=== PATIENT | male | born 2000 | race Caucasian/White ===

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

== ENCOUNTER → 2024-10-15 | Outpatient (CLI) | payer OTHER, SELFPAY ==
[2024-10-15 12:28] LABS: Hematocrit 50.5 % (40-54); Hemoglobin 17.2 g/dL (13.0-16.5); Immature Granulocytes Count 0.050 X10^3/uL (0.0-0.0); Mean Corp Hgb Conc 34.1 g/dL (32-36); Mean Corpuscular Volume 86.3 fL (80-94); Mean Platelet Vol. 9.9 fl (6.2-12.0); NRBC Flagged by Analyzer 0 % (0-5); Platelet Count 318 K/mm3 (150-450); RBC Distribution Width CV 12.2 % (11.6-14.6); RBC Distribution Width SD 38.4 fl (35.1-43.9); Red Blood Count 5.85 M/mm3 (4.6-6.2); White Blood Count 7.3 K/mm3 (4.4-11.0)
[2024-10-15 13:18] LABS: AST(SGOT) 31 U/L (<=37); Alanine Aminotransfer ALT/SGPT 53 U/L (<=46); Albumin, Serum 4.6 g/dL (3.5-5.0); Alkaline Phosphatase 78 U/L (40-129); Anion Gap 13 (5-15); BUN 21 mg/dL (4-19); BUN/Creat Ratio 20.5 RATIO (10-20); Calcium,Total 9.7 mg/dL (7.6-11.0); Carbon Dioxide 22.6 mmol/L (21.0-32.0); Chloride 104 mmol/L (98-108); Cholesterol 178 mg/dL (<=190); Globulin 2.8 g/dL (2.2-4.2); Glucose 87 mg/dL (70-99); Low Density Lipoprotein Calc. 118 mg/dL; Potassium 4.3 mmol/L (3.3-5.1); Triglycerides 61 mg/dL; Very Low Density Lipoprotein 12 mg/dL (5-40); cholesterol:hdl ratio screen 3.74
[2024-10-15 13:21] LABS: Vitamin D,25 Hydroxy 70.0 ng/mL (30-100)
--- OUTSIDE RECORDS SUMMARY | 2024-10-15 21:58 | XMS RPT_ITS | CCD ---
Author Organization [facility] Care Team Providers Care Frame Feeder Name Role Phone Janae Siddiqui Unavailable Unavailable Janae Siddiqui Unavailable Unavailable [facility] Unavailable Unavailable Nery Miller Admitting Unavailable Nery Miller Attending Unavailable [facility] Unavailable Supa Mayo Unavailable [phone] Kimberlee Alonzo Unavailable Unavailabl e NO, PHYSICIAN Primary Care Unavailable TAVON JIMENEZ, ODALYS Attending Unavailable TAVON JIMENEZ, ODALYS Attending Unavailable NO, PHYSICIAN Primary Care Unavailable TAVON JIMENEZ, ODALYS Attending Unavailable NO, PHYSICIAN Primary Care Unavailable Problems Problem Classification Problem Date Documented Da te Episodic/Chronic Other aftercare (1 source) Other intermediate school teacher (current) drug therapy; Translations: [Z79.899 - Other mcfp (current) drug therapy] Onset: 04-02-2018 Episodic Other gastrointestinal disorders (2 sources) Diarrhea; Translations: [Diarrhea] 05-16-2021 Episodic Other skin disorders (1 source) Acne vulgaris; Translations: [L70.0 - Acne vulgaris] Onset: 04-02-2018 Episodic Other skin disorders (2 sources) Ingrowing nail; Translations: [Ingrowing nail] Onset: 10-25-2023 Episodic Unclassified (2 sources) DIARREAH X5 DAYS. 24 HOURS WITH BLOOD 05-16-2021 Comment on above: DIARREAH X5 DAYS. 24 HOURS WITH BLOOD Unclassified (2 sources) Post-op Onset: 11-01-2023 Results Test Name Value Interpretation Reference Range Facility CLOST DIFF. TOXIN, PCRon CLOST.DIFF NAP 1 STRAIN (Presumptive) Canceled Normal Not Detected [facility] Comment on above: Order Comment: TEST CLOST DIFF. TOXIN, PCR WAS CANCELLED, 05/16/2021 22:28 PATIENT DISCHARGED. Performed By: #### C DTPC #### [address] [address] CLOST.DIFF.TOXIN,PC R Canceled [facility] Comment on above: Order Comment: TEST CLOST DIFF. TOXIN, PCR WAS CANCELLED, 05/16/2021 22:28 PATIENT DISCHARGED. Result Comment: This assay detects the presence of the tcdB (toxin B) gene via DNA amplification, and results should be interpreted in the context of the patients history and clinical findings. This test cannot be performed on formed stools or used as a test of cure, and should not be performed more than once per 7 days. Performed By: #### C DTPC #### [address] [address] STOOL PATHOGEN PCR PANELon 0 05-17-2021 CAMPYLOBACTER GP. Canceled [facility] Comment on above: Order Comment: TEST STOOL PATHOGEN PCR PANEL WAS CANCELLED, 05/16/2021 22:28 PATIENT DISCHARGED. Performed By: #### S TLPP #### [facility] [address] [place] [address] NOROVIRUS GI/GII Canceled [facility] Comment on above: Order Comment: TEST STOOL PATHOGEN PCR PANEL WAS CANCELLED, 05/16/2021 22:28 PATIENT DISCHARGED. Performed By: #### S TLPP #### [facility] [address] [place] [address] ROTAVIRUS A Canceled [facility] Comment on above: Order Comment: TEST STOOL PATHOGEN PCR PANEL WAS CANCELLED, 05/16/2021 22:28 PATIENT DISCHARGED. Result Comment: The enteric PCR panel is a panel of sensitive and specific amplified nucleic acid tests indicated as an aid in the diagnosis of specific bacterial and viral agents of gastrointestinal illness, in conjunction with other clinical, laboratory, and epidemiological information. This test is not approved for monitoring these infections. Monitoring is available for Salmonella and Shigella infections-request test Stool PCR Follow-Up (STLPF). Monitoring tests are not available at this time for other enteric agents in this panel. Performed By: #### S TLPP #### [facility] [address] [place] [address] SALMONELLA SP. Canceled Normal [facility] Comment on above: Order Comment: TEST STOOL PATHOGEN PCR PANEL WAS CANCELLED, 05/16/2021 22:28 PATIENT DISCHARGED. Performed By: #### S TLPP #### [facility] [address] [place] [address] SHIGA TOXIN 1 Canceled [facility] Comment on above: Order Comment: TEST STOOL PATHOGEN PCR PANEL WAS CANCELLED, 05/16/2021 22:28 PATIENT DISCHARGED. Performed By: #### S TLPP #### [facility] [address] [place] [id number] SHIGA TOXIN 2 Canceled Normal [facility] Comment on above: Order Comment: TEST STOOL PATHOGEN PCR PANEL WAS CANCELLED, 05/16/2021 22:28 PATIENT DISCHARGED. Performed By: #### S TLPP #### [facility] [address] [place] [address] SHIGELLA SP. Canceled [facility] Comment on above: Order Comment: TEST STOOL PATHOGEN PCR PANEL WAS CANCELLED, 05/16/2021 22:28 PATIENT DISCHARGED. Performed By: #### S TLPP #### [facility] [address] [place] [id number] [employer] Canceled [facility] Comment on above: Order Comment: TEST STOOL PATHOGEN PCR PANEL WAS CANCELLED, 05/16/2021 22:28 PATIENT DISCHARGED. Performed By: #### S TLPP #### [facility] [address] [place] [id number] YERSINIA ENTEROCOLITICA Canceled [facility] Comment on above: Order Comment: TEST STOOL PATHOGEN PCR PANEL WAS CANCELLED, 05/16/2021 22:28 PATIENT DISCHARGED. Performed By: #### S TLPP #### [facility] [address] [place] [id number] CBC AND DIFFERENTIALon 05-16 Basophils (Bld) [#/Vol] 0.00 10*3/uL Normal 0.00 - 0.10 [facility] Comment on above: Performed By: #### C BCDF #### [address] [address] Basophils/100 WBC (Bld) 0.3 % Normal 0.0 - 2.0 [facility] Comment on above: Performed By: #### C BCDF #### [address] [address] Eosinophils (Bld) [#/Vol] 0.00 10*3/uL Normal 0.00 - 0.70 [facility] Comment on above: Performed By: #### C BCDF #### [address] [address] Eosinophils/100 WBC (Bld) 0.5 % Normal 0.0 - 6.0 [facility] Comment on above: Performed By: #### C BCDF #### [address] [address] Erythrocyte distribution width (RBC) [Ratio] 13.3 % Normal 11.5 - 14.5 [facility] Comment on above: Performed By: #### C BCDF #### [address] [address] Hematocrit (Bld) [Volume fraction] 46.4 % Normal 41.0 - 52.0 [facility] Comment on above: Performed By: #### C BCDF #### [address] [address] Hemoglobin (Bld) [Mass/Vol] 15.9 g/dL Normal 13.5 - 17.5 [facility] Comment on above: Performed By: #### C BCDF #### [address] [address] Lymphocytes (Bld) [#/Vol] 1.00 10*3/uL Low 1.20 - 4.80 [facility] Comment on above: Performed By: #### C BCDF #### [address] [address] Lymphocytes/100 WBC (Bld) 11.3 % Normal 13.0 - 44.0 [facility] Comment on above: Performed By: #### C BCDF #### [address] [address] MCHC (RBC) [Mass/Vol] 34.3 g/dL Normal 32.0 - 36.0 [facility] Comment on above: Performed By: #### C BCDF #### [address] [address] MCV (RBC) [Entitic vol] 85 fL Normal 80 - 100 [facility] Comment on above: Performed By: #### C BCDF #### [address] [address] Monocytes (Bld) [#/Vol] 1.00 10*3/uL Normal 0.10 - 1.00 [facility] Comment on above: Performed By: #### C BCDF #### [address] [address] Monocytes/100 WBC (Bld) 11.3 % Normal 2.0 - 10.0 [facility] Comment on above: Performed By: #### C BCDF #### [address] [address] Neutrophils (Bld) [#/Vol] 6.50 10*3/uL Normal 1.20 - 7.70 [facility] Comment on above: Result Comment: Perc ent differential counts (%) should be interpreted in the context of the absolute cell counts (cells/L). Performed By: #### C BCDF #### [address] [address] Neutrophils/100 WBC (Bld) 76.6 % Normal 40.0 - 80.0 [facility] Comment on above: Performed By: #### C BCDF #### [address] [address] NUCLEATED RBC 0.2 /100 WBC Normal [facility] Comment on above: Performed By: #### C BCDF #### [address] [address] Platelets (Bld) [#/Vol] 163 10*3/uL Normal 150 - 450 [facility] Comment on above: Performed By: #### C BCDF #### [address] [address] RBC 5.47 x10E12/L Normal 4.50 - 5.90 [facility] Comment on above: Performed By: #### C BCDF #### [place] [id number] WBC (Bld) [#/Vol] 8.4 10*3/uL Normal 4.4 - 11.3 [facility] Comment on above: Performed By: #### C BCDF #### [place] [id number] CLOST DIFF. TOXIN, PCRon Lab Specimen Source Stool Normal [facility] Comment on above: Order Comment: TEST CLOST DIFF. TOXIN, PCR WAS CANCELLED, 05/16/2021 22:28 PATIENT DISCHARGED. Performed By: #### C DTPC #### [place] [address] COMPREHENSIVE PANELon 2021 Albumin [Mass/Vol] 4.1 g/dL Normal 3.4 - 5.0 [facility] Comment on above: Performed By: #### C MP #### [place] [address] ALP [Catalytic activity/Vol] 72 U/L Normal 33 - 120 [facility] Comment on above: Performed By: #### C MP #### [place] [address] ALT [Catalytic activity/Vol] 30 U/L Normal 10 - 52 [facility] Comment on above: Result Comment: Luz ents treated with Sulfasalazine may generate falsely decreased results for ALT. Performed By: #### C MP #### [place] [address] Anion gap [Moles/Vol] 11 mmol/L Normal 10 - 20 [facility] Comment on above: Performed By: #### C MP #### [place] [id number] AST [Catalytic activity/Vol] 15 U/L Normal 9 - 39 [facility] Comment on above: Performed By: #### C MP #### [address] [address] Bilirubin [Mass/Vol] 0.7 mg/dL Normal 0.0 - 1.2 [facility] Comment on above: Performed By: #### C MP #### [address] [address] Calcium [Mass/Vol] 9.1 mg/dL Normal 8.6 - 10.3 [facility] Comment on above: Performed By: #### C MP #### [address] [address] Chloride [Moles/Vol] 104 mmol/L Normal 98 - 107 [facility] Comment on above: Performed By: #### C MP #### [address] [address] Creatinine [Mass/Vol] 1.01 mg/dL Normal 0.50 - 1.30 [facility] Comment on above: Performed By: #### C MP #### [address] [address] eGFR MALE >90 Normal >90 [facility] Comment on above: Result Comment: CALC ULATIONS OF ESTIMATED GFR ARE PERFORMED USING THE 2020 CKD-EPI STUDY REFIT EQUATION WITHOUT THE RACE VARIABLE FOR THE IDMS-TRACEABLE CREATININE METHODS. https://jasn.asnjournals.org/content//ASN.28475478 88 Performed By: #### C MP #### [address] [address] Glucose [Mass/Vol] 89 mg/dL Normal 74 - 99 [facility] Comment on above: Performed By: #### C MP #### [address] [address] HCO3 (Bld) [Moles/Vol] 29 mmol/L Normal 21 - 32 [facility] Comment on above: Performed By: #### C MP #### [address] [address] Potassium [Moles/Vol] 4.0 mmol/L Normal 3.5 - 5.3 [facility] Comment on above: Performed By: #### C MP #### [address] [address] Protein [Mass/Vol] 6.9 g/dL Normal 6.4 - 8.2 [facility] Comment on above: Performed By: #### C MP #### [address] [address] Sodium [Moles/Vol] 140 mmol/L Normal 136 - 145 [facility] Comment on above: Performed By: #### C MP #### [address] [address] Urea nitrogen [Mass/Vol] 14 mg/dL Normal 6 - 23 [facility] Comment on above: Performed By: #### C MP #### [address] [address] LIPASEon 05-16-2021 Lipase [Catalytic activity/Vol] 20 U/L Normal 9 - 82 [facility] Comment on above: Result Comment: Bettye puncture immediately after or during the administration of Metamizole may lead to falsely low results. Testing should be performed immediately prior to Metamizole dosing. L-rtrxpo-z-benzoquinone imine (metabolite of Acetaminophen) will generate erroneously low results in samples for patients that have taken toxic doses of acetaminophen. Performed By: #### L IPAS #### [address] [address] Provider Note - ED v3on 02-0 Provider Note - ED v3 Provider Note: Chart Review: HISTORY OF PRESENTING ILLNESS SRI is a 21 year old Male and was seen by me at 16-May-2021 10:52 for a chief complaint of diarrhea (Patient to ED reference diarrhea with abdominal pain x 5 days. Patient also had blood in stool this date.)(1). Triage Information: Most recent Vital Sign Value Date Temp (F): 99 05-16-2021 10:43 Temp (C): 37.2 05-16-2021 10:43 Heart Rate (beats/min): 75 05-16-2021 10:43 Respirations (breaths/min): 18 05-16-2021 10:43 SpO2 (%): 98 05-16-2021 10:43 BP Systolic (mm Hg): 141 05-16-2021 10:43 BP Diastolic (mm Hg): 87 05-16-2021 10:43 PAST MEDICAL HISTORY ALLERGIES/INTOLERANCES: No Known Allergies HEALTH HISTORY: No documented data. OUTPATIENT MEDICATIONS: Home Medications Review Status for Reconciliation: N/A Med Status: N/A No documented data. SIGNIFICANT EVENTS: Past Medical History Description:pt denies CRITICAL CARE RESULTS: Recent Lab Results: I have reviewed these laboratory results: Urinalysis 16-May-2021 12:23:00 ResultValue Color, Urine Yellow Reference Range: STRAW,YELLOW Appearance, Urine HAZY Specific [place], Urine 1.016 pH, Urine 6.0 Protein, Urine NEGATIVE Glucose, Urine NEGATIVE Blood, Urine NEGATIVE Ketones, Urine NEGATIVE Bilirubin, Urine NEGATIVE Urobilinogen, Urine <2.0 Nitrite, Urine Negative Leukocyte Esterase, Urine NEGATIVE Complete Blood Count + Differential 16-May-2021 11:24:00 ResultValue White Blood Cell Count 8.4 Nucleated Erythrocyte Count 0.2 Red Blood Cell Count 5.47 HGB 15.9 HCT 46.4 MCV 85 MCHC 34.3 PLT 163 RDW-CV 13.3 Neutrophil % 76.6 Lymphocyte % 11.3 Monocyte % 11.3 Eosinophil % 0.5 Basophil % 0.3 Neutrophil Count 6.50 Lymphocyte Count 1.00 L Monocyte Count 1.00 Eosinophil Count 0.00 Basophil Count 0.00 Comprehensive Metabolic Panel 16-May-2021 11:24:00 ResultValue Glucose, Serum 89 NA 140 K 4.0 CL 104 Bicarbonate, Serum 29 Anion Gap, Serum 11 BUN 14 CREAT 1.01 GFR Male >90 Calcium, Serum 9.1 ALB 4.1 ALKP 72 T Pro 6.9 T Bili 0.7 Alanine Aminotransferase, Serum 30 Aspartate Transaminase, Serum 15 Lipase, Serum 16-May-2021 11:24:00 ResultValue Lipase, Serum 20 VITAL SIGNS: T PRBP SpO2O2(LPM) %FiO2 Method 16-May-2021 12:19:[id number] 99 room air, no respiratory support 16-May-2021 10:43:[id number]/87 98 room air, no respiratory support MDM MDM/ED COURSE: PMH: Reviewed PSH: Reviewed Social History: Reviewed. Allergies reviewed. HPI: This is a 21 year old male with no significant past medical history who presents to the ED today with complaints of abdominal cramping and diarrhea x5 days. States up to 20x/day at the worst. Noted blood in the toilet and on the toilet paper today. Recently moved into his own home and has not been around anyone else ill. Had a fever 4 days ago, none since. No nausea or vomiting. No history of bowel disease. No recent antibiotics. He is vaccinated against Covid. REVIEW OF SYSTEMS: All other systems reviewed and negative except as listed in HPI. PHYSICAL EXAM: GENERAL: Vitals noted, no distress. Alert and oriented x 3. Non-toxic. NECK: Supple. No masses. No midline tenderness. No meningeal signs. CARDIAC: Regular rate, rhythm. No murmurs rubs or gallops. No JVD. PULMONARY: Lungs clear and equal bilaterally. No wheezes rales or rhonchi. No respiratory distress. ABDOMEN: Soft, nondistended, and no focal tenderness. No peritoneal signs. Bowel sounds are present and normoactive in all 4 quadrants. No pulsatile masses. EXTREMITIES: No peripheral edema. SKIN: No rash. Warm, dry, and intact. NEURO: No focal neurologic deficits. ED COURSE: This patient was seen and examined by myself independently. IV established. Labs drawn and noted above. Hydrated with NS 1L bolus. Stool studies and UA ordered. Unable to provide stool specimen here. Feeling much improved. Will followup with PCP as needed. He is discharged home in a stable condition with computer instructions given and is encouraged to return to the ER for any new or worsening symptoms. DIAGNOSTIC IMPRESSION: #1 diarrhea DISPOSITION Diagnosis/Annotation: ED Dx Name:Diarrhea Code:R19.7 Disposition: discharged Type: home CONSULT CRITICAL CARE TIME Is this a critically ill patient: no Electronic Signatures: Kimberlee Alonzo (GAS METER REPAIRER-AUTOPSY PATHOLOGIST) (Signed 16-May-2021 13:21) Authored: HPI, PMH, Results/Vital Signs, MDM/ED Course, Clinical Impression, Attestation, Chart Review, Scores Last Updated: 16-May-2021 13:21 by Kimberlee Alonzo (GAS METER REPAIRER-AUTOPSY PATHOLOGIST) References: 1. Data Referenced From Triage - ED 16-May-2021 10:43 Normal [facility] Risk Screen - Adult Emergenc yon 05-16-2021 Risk Screen - Adult Emergency Preferred Language: Preferred Language: Preferred Language for Discussing Health Care (patient/designee)Mariella pink Advanced Directives: Advance Directive/DNRno Family Violence Adult: Abuse Screen: Are you or have you been threatened or abused physically, emotionally, or sexually by anyoneno Learning Assessment (Patient): Learning Assessment (Patient): Patient is Able to be Assessed for Learningyes Factors Influencing Readiness to Learnacuteness of illness Factors that Impact Ability to Learnnone Devices/Methods Used to Communicatenone Learning Preferencesaudio Cultural Considerationsnone Developmental Considerationsnone Muslim Considerationsnone Learning Assessment (Other Learner): Learning Assessment (Other Learner): Other learner availableno Pressure Injury/TB/Substance: Pressure Injury: Do you have a coughno Smoking Statusnever smoker Alcohol Useoccasionally Drug Usedenies Admission Risk Screen: Significant IndicatorsComplete CAGE: CAGE: Is this an injured patient at a Trauma Center ([facility]/[place] a/[place]): no Electronic Signatures: Bernarda Andujar (DAISY) (Signed 16-May-2021 11:02) Authored: Preferred Language, Advanced Directives, Family Violence Adult, Learning Assessment (Patient), Learning Assessment (Other Learner), Pressure Injury/TB/Substance, Pressure Injury, CAGE Last Updated: 16-May-2021 11:02 by Bernarda Andujar (DAISY) [facility] STOOL PATHOGEN PCR PANELon 0 05-16-2021 Lab Specimen Source Normal [facility] Comment on above: Order Comment: TEST STOOL PATHOGEN PCR PANEL WAS CANCELLED, 05/16/2021 22:28 PATIENT DISCHARGED. Performed By: #### S TLPP #### [facility] [address] [place] [address] Triage - EDon 05-16-2021 Triage - ED Quick Triage: The patient and/or guardian verbally acknowledges placement for services into the following (when Urgent Care Service hours are operating):emergency department Chart Review: ARRIVAL INFORMATION Mode of Arrival: private vehicle CHIEF COMPLAINT SRI ARIAS is a Male patient with a chief complaint of diarrhea (Patient to ED reference diarrhea with abdominal pain x 5 days. Patient also had blood in stool this date.). Onset of the Complaint: 11-May-2021 22:00 Triage Date/Time: 16-May-2021 10:43 NANCI: 3 Pain Rating (0-10): 0 = None Vital Signs: Temperature: 99.0F ( 37.2C) taken temporal Blood Pressure: 141/87 Mean: Heart Rate: 75 Respiratory Rate: 18 Pulse Oximetry: 98% on room air, no respiratory support. Height: 5 feet 10.00 inches. 177.8 CM Weight: 219.8 pounds. Calculated 99.7 kg. (stated) Calculated BMI (kg/m2): 31.537 Calculated BSA (m2) 2.22 [place] Coma Scale: Best Eye Response: (E4) spontaneous Best Motor Response: (M6) obeys commands Best Verbal Response: (V5) oriented Karl Score: 15 Karl Assessment Qualifiers: patient not sedated/intubated Cough lasting greater than 3 weeks: no Allergies: no Mask applied: yes Patient has homicidal thoughts: no Symptoms Are Negative For: anorexia, constipation, diaphoresis, diarrhea, distention, fever, nausea, rectal blood and vomiting. Risk Screens Suicide Risk Screen In the Past Month: Have you wished you were or wished you could go to sleep and not wake up no In the Past Month: Have you had any actual thoughts of killing yourself no In Your Lifetime: Have you ever done anything, started to do anything, or prepared to do anything to end your life no Martínez Fall Scale Screening Has the patient fallen before (or is the patient in the ED as a result of a fall) has not had a fall Does the patient have an impaired gait does not have impaired gait Is the patient cognitively impaired not cognitively impaired Interventions: Martínez Fall Interventions: LOW INTERVENTIONS: *patient oriented to surroundings and call system, * patient/family falls education completed and documented, *patients fall status communicated during bedside handoff, *whiteboard updated, *mode of toileting discussed with patient, *bed in low position with brakes locked, *call light in reach, * non-skid footwear TRAVEL HISTORY Travel History Coronavirus Screening: no exposure or symptoms Travel Exposure History: NO travel to International locations in the past 30 days PAIN Pain Scale Used: REBECA Pain Rating (0-10): 0 = None Past Medical History: Past Medical History Reviewedyes pt denies: Past Medical History, Active Electronic Signatures: Bernarda Andujar (RN) (Signed 16-May-2021 11:02) Authored: Quick Triage, Chart Review, Past Medical History Stevie Lazcano (EMT-P) (Signed 16-May-2021 10:46) Authored: Quick Triage, Risk Screens, Pain, Travel History, Chart Review, Scores Last Updated: 16-May-2021 11:02 by Bernarda Andujar (RN) Normal [facility] URINALYSISon 05-16-2021 Appearance (U) HAZY Normal CLEAR [facility] Comment on above: Performed By: #### U A #### [place] [address] Bilirubin Ql (U) Negative Normal NEGATIVE [facility] Comment on above: Performed By: #### U A #### [place] [address] Color (U) Yellow Normal STRAW,YELLOW [facility] Comment on above: Performed By: #### U A #### [place] [id number] Glucose Ql (U) Negative Normal NEGATIVE [facility] Comment on above: Performed By: #### U A #### [address] [address] Hemoglobin Ql (U) Negative Normal NEGATIVE [facility] Comment on above: Performed By: #### U A #### [place] [id number] Ketones Ql (U) Negative Normal NEGATIVE [facility] Comment on above: Performed By: #### U A #### [address] [address] Leukocyte esterase Test strip Ql (U) Negative Normal NEGATIVE [facility] Comment on above: Performed By: #### U A #### [address] [address] Nitrite Ql (U) Negative Normal NEGATIVE [facility] Comment on above: Performed By: #### U A #### [place] [id number] pH (U) 6.0 [pH] Normal 5.0 - 8.0 [facility] Comment on above: Performed By: #### U A #### [address] [address] Protein Ql (U) Negative Normal NEGATIVE [facility] Comment on above: Performed By: #### U A #### [address] [address] Specific gravity (U) [Rel density] 1.016 Normal 1.005 - 1.035 [facility] Comment on above: Performed By: #### U A #### [address] [address] Urobilinogen (U) [Mass/Vol] mg/dL Normal 0.0 - 1.9 [facility] Comment on above: Performed By: #### U A #### [address] [address] Auto Diffon 07-25-2018 Basophils #/vol (Bld) 0.0 E3/mcL Normal 0.0-0.2 [facility] Comment on above: Order Comment: Order Added by Discern Expert. Performed By: #### 2 [id number] #### ROLAND RemHemo [address] [place] [address] Basophils/100 WBC (Bld) 0.5 % Normal 0.0-2.0 [facility] Comment on above: Order Comment: Order Added by Discern Expert. Performed By: #### 2 [id number] #### ROLAND RemHemo [address] [place] [address] Eos Absolute 0.1 E3/mcL Normal 0.0-0.7 [facility] Comment on above: Order Comment: Order Added by Discern Expert. Performed By: #### 2 [id number] #### ROLAND RemHemo [address] [place] [address] Eosinophils/100 WBC (Bld) 1.5 % Normal 0.0-11.0 [facility] Comment on above: Order Comment: Order Added by Discern Expert. Performed By: #### 2 [id number] #### ROLAND RemHemo [address] [place] [address] Lymphocytes #/vol (Bld) 2.0 E3/mcL Normal 1.2-3.4 [facility] Comment on above: Order Comment: Order Added by Discern Expert. Performed By: #### 2 [id number] #### ROLAND RemHemo [address] [place] [address] Lymphocytes/100 WBC (Bld) 37.2 % Normal 20.0-55.0 [facility] Comment on above: Order Comment: Order Added by Discern Expert. Performed By: #### 2 [id number] #### ROLAND RemHemo [address] [place] [address] [place] Absolute 0.4 E3/mcL Normal 0.0-0.7 [facility] Comment on above: Order Comment: Order Added by Discern Expert. Performed By: #### 2 [id number] #### ROLAND RemHemo [address] [place] [address] Monocytes/100 WBC (Bld) 8.0 % Normal 0.0-10.0 [facility] Comment on above: Order Comment: Order Added by Discern Expert. Performed By: #### 2 [id number] #### ROLAND RemHemo [address] [place] [address] Neutro Absolute 2.8 E3/mcL Normal 1.4-6.5 [facility] Comment on above: Order Comment: Order Added by Discern Expert. Performed By: #### 2 [id number] #### ROLAND RemHemo [address] [place] [address] Neutro Auto 52.8 % Normal 37.0-75.0 [facility] Comment on above: Order Comment: Order Added by Discern Expert. Performed By: #### 2 [id number] #### ROLAND RemHemo [address] [place] [address] CBC w/ Auto Diffon 9 Erythrocyte distribution width Ratio (RBC) 13.5 % Normal 11.5-14.5 [facility] Comment on above: Performed By: #### 2 [id number] #### ROLAND RemHemo [address] [place] [address] Hematocrit Volume Fraction (Bld) 46.4 % Normal 42.0-52.0 [facility] Comment on above: Performed By: #### 2 [id number] #### ROLAND RemHemo [address] [place] [id number] Hemoglobin mass conc (Bld) 15.8 g/dL Normal 13.5-18.0 [facility] Comment on above: Performed By: #### 2 [id number] #### ROLAND RemHemo [address] [place] [id number] MCH Entitic mass (RBC) 29.8 pg Normal 27.0-31.0 [facility] Comment on above: Performed By: #### 2 [id number] #### ROLAND RemHemo [address] [place] [address] MCHC mass conc (RBC) 34.1 g/dL Normal 33.0-37.0 [facility] Comment on above: Performed By: #### 2 [id number] #### ROLAND RemHemo [address] [place] [address] MCV Entitic volume (RBC) 87.5 fL Normal 78.0-100.0 [facility] Comment on above: Performed By: #### 2 [id number] #### ROLAND RemHemo [address] [place] [address] Platelet mean volume Entitic volume (Bld) 9.2 fL Normal 7.4-11.0 [facility] Comment on above: Performed By: #### 2 [id number] #### ROLAND RemHemo [address] [place], [place] [id number] Platelets #/vol (Bld) 181 E3/mcL Normal 130-400 [facility] Comment on above: Performed By: #### 2 [id number] #### ROLAND RemHemo [address] [place] [id number] RBC #/vol (Bld) 5.30 E6/mcL Normal 3.90-6.10 [facility] Comment on above: Performed By: #### 2 [id number] #### ROLAND RemHemo [address] [place] [id number] WBC #/vol (Bld) 5.3 E3/mcL Normal 3.6-11.0 [facility] Comment on above: Performed By: #### 2 [id number] #### ROLAND RemHemo [address] [place] [address] Hep Func Panelon 07-25-2018 Albumin mass conc 4.5 g/dL Normal 3.4-5.0 [facility] Comment on above: Performed By: #### 2 [id number] #### ROLAND Moore [address] [place] [address] Albumin/Globulin mass ratio 2.1 {ratio} High 1.1-1.9 [facility] Comment on above: Performed By: #### 2 [id number] #### ROLAND Moore [facility] [place] [address] Alk Phos 97 Int._Unit/L Normal 33-139 [facility] Comment on above: Performed By: #### 2 [id number] #### ROLAND Moore [facility] [place] [address] ALT enzyme act/vol 77 Int._Unit/L High 10-52 [facility] Comment on above: Performed By: #### 2 [id number] #### ROLAND Moore [address] [place] [address] AST enzyme act/vol 41 Int._Unit/L High 9-39 [facility] Comment on above: Performed By: #### 2 [id number] #### ROLAND Moore [address] [place] [address] Bili Direct 0.13 mg/dL Normal 0.00-0.30 [facility] Comment on above: Performed By: #### 2 [id number] #### ROLAND Moore [address] [place] [address] Bili Indirect 0.72 mg/dL Normal [facility] Comment on above: Result Comment: No e stablished ranges available for the indirect bilirubin Performed By: #### 2 [id number] #### ROLAND Moore [address] [place] [address] Bili Total 0.85 mg/dL Normal 0.00-1.20 [facility] Comment on above: Performed By: #### 2 [id number] #### ROLAND Moore [address] [place] [address] Globulin mass conc (S) 2.0 g/dL Normal 2.0-4.0 [facility] Comment on above: Performed By: #### 2 079332 #### ROLAND RemChem [address] [place] [address] Protein mass conc 6.6 g/dL Normal 6.4-8.2 [facility] Comment on above: Performed By: #### 2 [id number] #### ROLAND RemChem [address] [place] [address] Lipid Profileon 07-25-2018 Cholesterol in HDL mass conc 38 mg/dL Low 40-45 [facility] Comment on above: Performed By: #### 3 [id number] #### ROLAND RemChem [address] [place] [address] Cholesterol in LDL mass conc 116 mg/dL Normal 0-130 [facility] Comment on above: Performed By: #### 3 [id number] #### ROLAND RemChem [address] [place] [address] Cholesterol in VLDL mass conc 13 mg/dL Normal 0-40 [facility] Comment on above: Performed By: #### 3 [id number] #### ROLAND RemChem [address] [place] [address] Cholesterol mass conc 167 mg/dL Normal 0-169 [facility] Comment on above: Performed By: #### 3 [id number] #### ROLAND RemChem [address] [place] [address] Triglyceride mass conc 63 mg/dL Normal 0-149 [facility] Comment on above: Result Comment: AGE DESIRABLE BORDERLINE HIGH 91 D - 9 Y 0 - 74 75 - 99 > 100 10 - 19 Y 0 - 89 90 - 129 > 130 20 - 24 Y 0 - 114 115 - 149 > 150 > 25 0 - 149 150 - 199 200 - 499 Performed By: #### 3 [id number] #### ROLAND RemChem [address] [place] [address] CBC W/Diff, Automatedon 03-15 Absolute Neut 4.4 X10 3/uL Normal 2.0-7.7 [facility] Comment on above: Performed By: #### L 100.0100 ####[facility] [address] [place], [place], [id number] Basophils/100 WBC Auto (Bld) 0.1 % Normal 0-1 [facility] Comment on above: Performed By: #### L 100.0100 ####[facility] [address] [place], [address] Eosinophils/100 WBC Auto (Bld) 1.3 % Normal 0-5 [facility] Comment on above: Performed By: #### L 100.0100 ####[facility] [address] [place], [address] Erythrocyte distribution width Auto Ratio (RBC) 12.9 % Normal 11.6-14.6 [facility] Comment on above: Performed By: #### L 100.0100 ####[facility] [address] [place], [address] Hematocrit Auto Volume Fraction (Bld) 46.6 % Normal 40-54 [facility] Comment on above: Performed By: #### L 100.0100 ####[facility] [address] [place], [address] Hemoglobin mass conc (Bld) 15.7 g/dL Normal 13.0-16.5 [facility] Comment on above: Performed By: #### L 100.0100 ####[facility] [address] [place], [address] IM GRAN % 0.100 % Normal 0.0-0.9 [facility] Comment on above: Result Comment: IG% - Immature Granulocytes (promyelocytes, myelocytes andmetamyelocytes) > 1% indicates that a LEFT SHIFT is Present. Performed By: #### L 100.0100 ####[facility] [address] [place], [address] Lymphocytes Auto #/vol (Bld) 1.67 X10 3/ul Normal 0.83-4.51 [facility] Comment on above: Performed By: #### L 100.0100 ####[facility] [address] [place], [address] Lymphocytes/100 WBC Auto (Bld) 24.7 % Normal 19-41 [facility] Comment on above: Performed By: #### L 100.0100 ####[facility] [address] [place], [address] MCH Auto Entitic mass (RBC) 29.1 pg Normal 27.0-32.0 [facility] Comment on above: Performed By: #### L 100.0100 ####[facility] [address] [place], [address] MCHC Auto mass conc (RBC) 33.7 g/gl Normal 32-36 [facility] Comment on above: Performed By: #### L 100.0100 ####[facility] [address] [place], [address] MCV Auto Entitic volume (RBC) 86.5 fL Normal 80-94 [facility] Comment on above: Performed By: #### L 100.0100 ####[facility] [address] [place], [address] Monocytes/100 WBC Auto (Bld) 8.4 % Normal 0-10 [facility] Comment on above: Performed By: #### L 100.0100 ####[facility] [address] [place], [address] Neutrophils/100 WBC Auto (Bld) 65.4 % Normal 47-70 [facility] Comment on above: Performed By: #### L 100.0100 ####[facility] [address] [place], [address] Platelet mean volume Auto Entitic volume (Bld) 10.5 fL Normal 6.2-12.0 [facility] Comment on above: Performed By: #### L 100.0100 ####[facility] [address] [place], [address] Platelets Auto #/vol (Bld) 153 10*3/uL Normal 150-450 [facility] Comment on above: Performed By: #### L 100.0100 ####[facility] [address] [place], [address] RBC Auto #/vol (Bld) 5.39 M/mm3 Normal 4.6-6.2 [facility] Comment on above: Performed By: #### L 100.0100 ####[facility] [address] [place], [address] RDW SD 40.8 fl Normal 35.1-43.9 [facility] Comment on above: Performed By: #### L 100.0100 ####[facility] [address] [place], [address] WBC Auto #/vol (Bld) 6.8 10*3/uL Normal 4.4-11.0 [facility] Comment on above: Performed By: #### L 100.0100 ####[facility] [address] [place], [address] Lipid Profileon 04-02-2018 Cholesterol in HDL mass conc 48 mg/dL Normal [facility] Comment on above: Result Comment: The drugs N-Acetylcysteine and Metamizole may falselydepress this assay. Reference Range HDL <40 mg/dL Low HDL Cholesterol HDL >or= 60 mg/dL High HDL Cholesterol Performed By: #### L 500.3400, L500.4100 ####[facility] [address] [place], [address] Cholesterol in LDL mass conc 73 mg/dL Normal 0-130 [facility] Comment on above: Performed By: #### L 500.3400, L500.4100 ####[facility] [address] [place], [address] Cholesterol in VLDL mass conc 7 mg/dL Normal 5-40 [facility] Comment on above: Performed By: #### L 500.3400, L500.4100 ####[facility] [address] [place], [address] Cholesterol mass conc 128 mg/dL Normal 200 [facility] Comment on above: Result Comment: <200 mg/dL Desirable 200-240 mg/dL Borderline >240 mg/dL High Risk Performed By: #### L 500.3400, L500.4100 ####[facility] [address] [place], [address] Triglyceride mass conc 35 mg/dL Normal [facility] Comment on above: Result Comment: The drugs N-Acetylcysteine and Metamizole may falselydepress this assay.Serum Triglycerides Reference Interval Normal <150 mg/dL Borderline high 150 - 199 mg/dL High 200 - 499 mg/dL Very High > or = 500 mg/dL Performed By: #### L 500.3400, L500.4100 ####[facility] [address] [place], [address] Liver Profileon 04-02-2018 Albumin mass conc 4.1 g/dL Normal 3.2-5.0 [facility] Comment on above: Performed By: #### L 500.3400, L500.4100 ####[facility] [address] [place], [address] ALP enzyme act/vol 112 U/L Normal 52-171 [facility] Comment on above: Performed By: #### L 500.3400, L500.4100 ####[facility] [address] [place], [address] ALT enzyme act/vol 69 U/L High 16-61 [facility] Comment on above: Performed By: #### L 500.3400, L500.4100 ####[facility] [address] [place], [address] AST enzyme act/vol 35 U/L Normal 15-37 [facility] Comment on above: Performed By: #### L 500.3400, L500.4100 ####[facility] [address] [place], [address] Bilirubin mass conc 0.90 mg/dL Normal 0.20-1.00 [facility] Comment on above: Performed By: #### L 500.3400, L500.4100 ####[facility] [address] [place], [address] Bilirubin.direct mass conc 0.22 mg/dL Normal 0.00-0.30 [facility] Comment on above: Performed By: #### L 500.3400, L500.4100 ####[facility] [address] [place], [address] Globulin Calculated mass conc (S) 3.2 g/dL Normal 2.2-4.2 [facility] Comment on above: Performed By: #### L 500.3400, L500.4100 ####[facility] [address] [place], [address] Protein mass conc 7.3 g/dL Normal 6.4-8.2 [facility] Comment on above: Performed By: #### L 500.3400, L500.4100 ####[facility] [address] [place], [address] Vital Signs Date Time Vital Sign Value Performing Clinician Rosie cabrales 05-16-2021 15:28-0500 Diastolic blood pressure 64 mm[Hg] Supa Mayo Other Phone: [facility] 05-16-2021 15:28-0500 Heart rate 74 /min Supa Mayo Other Phone: [facility] 05-16-2021 15:28-0500 Respiratory rate 16 /min Supa Mayo Other Phone: [facility] 05-16-2021 15:28-0500 SaO2% (BldA) [Mass fraction] 99 % Supa Mayo Other Phone: [facility] 05-16-2021 15:28-0500 Systolic blood pressure 118 mm[Hg] Supa Alegrialas Other Phone: [facility] 05-16-2021 12:43-0500 Body height 177.8 cm Supa Alegrialas Other Phone: [facility] 05-16-2021 12:43-0500 Body temperature 98.96 [degF] Supa Mayo Other Phone: [facility] 05-16-2021 12:43-0500 Body weight 99.7 kg Supa Mayo Other Phone: [facility] Encounters Encounter Date Encounter Type Care Provider Facility Start: 11-01-2023 End: 11-01-2023 ambulatory PHYSICIAN NO [facility] Start: 10-25-2023 End: 10-25-2023 ambulatory ODALYS MONTES DE OCA JR. [facility] Start: 10-18-2023 End: 10-18-2023 ambulatory ODALYS MONTES DE OCA JR. [facility] Start: 05-16-2021 End: 05-16-2021 Emergency department patient visit Kimberlee Alonzo [facility] Emergency 04 Start: 07-25-2018 End: 07-26-2018 Patient encounter procedure Nery Miller Facility:[facility] Start: 07-25-2018 Patient encounter procedure Facility:[id number] Start: 04-02-2018 Patient encounter procedure Janae Siddiqui Facility:[facility] Payers Date Payer Category Payer Unknown [id number] 2018 Unknown 2018 Self-pay 2018 Unknown [id number] 2000 Unknown [id number] 2.16.84 [id number] 2000 Unknown [id number] 2.16. [id number] 2000 Unknown [id number] 2.16. [id number] 2000 Unknown [id number] 2.16. [id number] 2000 Unknown [id number] 2.16. [id number] Unknown [id number] 2.16.8 [id number] Social History Date Type Detail Facility [facility] Tobacco smoking consumption unknown [facility] Progress note 11-01-2023 Note Date & Type Note Facility 11-01-2023 Note S/p left matrixectom y Patient is a pleasant 23 yo male f/u for Post matrixectomy . States he did great. A few days of pain and drainage then impoved. Vascular: DP/PT pulses are palpable +2/4 b/l. Mild lower extremity edema appreciated. Derm: no etrythema or drainage to toe. No longer ingrowing, looks great. Neuro: sharp dull is blunted. Protective sensation is diminished. Musk: Muscle strength to the lower extremity is 5/5 without any luis miguel deformities. No fluctuance or crepitation present. Patient is a pleasant 23 yo male f/u for Post matrixectomy for a painful ingrown nail. -ok to discontinue bandage and meds. F/u PRN AUTHENTICATED BY ODALYS MONTES DE OCA JR., [place] 11/01/2023 10:14:02 [facility] Progress note 10-25-2023 Note Date & Type Note Facility 10-25-2023 Note Left medial nail avu lsion with chemical matrixectomy Patient is a pleasant 23-year-old male coming in today for matrixectomy. No guarantees are implied or made. Primary risks are recurrence continued pain tingling burning scarring infection. Despite this risk, he does wish to proceed. No guarantees are implied or made. Procedure: After timeout consent was performed, and alcohol prep, did block the toe with 3 cc of 2% lidocaine plain. Attention was directed medially. This was split 3 mm off the hyponychium eponychial with an Slovak anvil and spinach with a 6100 blade. Hemostat was used to avulsed the offending nail border. Next the site was irrigated. 3 applications of phenol 30 seconds each with a cotton tip applicator was applied to the matrix. Post matrixectomy another irrigation was performed with normal saline. Postop dressing was then applied with Silvadene 4 x 4 Kerlix Coban. Keep this clean dry intact for 1 day remove and wash well tomorrow follow-up in 1 to 2 weeks for long-term check. AUTHENTICATED BY ODALYS MONTES DE OCA JR., ON 10/25/2023 10:43:14 [facility] Progress note 10-18-2023 Note Date & Type Note Facility 10-18-2023 Note HPI Chief Complaint Patient presents with Ingrown Toenail Patient presents for possible ingrown left great. Patient reports pus and drainage week ago. Patient suspects that he damaged nail a year ago cracking nail a year ago Patient is a pleasant 23-year-old male with a chronic left medial ingrown great toenail. He states that this been bothering him on and off for years. Every couple weeks he has to perform some light bathroom surgery to try to get this fixed. History reviewed. No pertinent past medical history. History reviewed. No pertinent surgical history. Social History Socioeconomic History Marital status: Tobacco Use Smoking status: Never Smokeless tobacco: Never Substance and Sexual Activity Alcohol use: Yes Drug use: Never Review of Systems Physical Exam Patient is AOx3. Linear and appropriate humor and thought process. Vascular: DP PT pulses are easily palpable 2-4. CFT is fair no edema Derm: No erythema no appearance of streaking lymphangitis or fluctuance today. Quite a bit of soreness noted to the medial edge where it is ingrowing mildly. Neuro: Normal. Musculoskeletal: Muscle strength is 5 out of 5. Can easily wiggle toes any clicking and or any catching Impression/Plan Problem List Items Addressed This Visit None Visit Diagnoses Ingrown nail of great toe of left foot - Primary Patient is a pleasant 23-year-old male with chronic ingrown nail. -At this time, did go over options including cutting this temporarily versus proceeding with a nail avulsion with chemical matrixectomy. This can be set up in the next 1 to 2 weeks for permanency. No antibiotics required today states not actively infected. AUTHENTICATED BY ODALYS MONTES DE OCA JR., ON 10/18/2023 09:17:40 [facility] Summary Purpose Family History No Family History Records FoundNo Family History Records FoundNo Family History Records FoundNo Family History Records FoundNo Family History Records Found Advance Directives No Advanced Directives Records FoundNo Advanced Directives Records FoundNo Advanced Directives Records FoundNo Advanced Directives Records FoundNo Advanced Directives Records Found Additional Source Comments (unrecognized sect ion and content) No Status Records FoundNo Status Records FoundNo Status Records FoundNo Status Records FoundNo Status Records Found INFORMATION SOURCE (unrecogn ized section and content) DATE CREATED AUTHOR 04/04/2018 [facility] DATE CREATED AUTHOR AUTHOR'S ORGANIZ ATION 07/27/2018 [facility] DATE CREATED AUTHOR AUTHOR'S ORGANIZ ATION 07/27/2018 [facility] DATE CREATED AUTHOR AUTHOR'S ORGANIZ ATION 05/19/2021 [facility] DATE CREATED AUTHOR AUTHOR'S ORGANIZ ATION 11/04/2023 [facility] <item> Privacy Markings (unrecogniz ed section and content) Section Author: Miranda Rain PROHIBITION ON REDISCLOSURE OF CONFIDENTIAL INFORMATION This notice accompanies a disclosure of information concerning a client made to you with the consent of such client. FOR RECORDS PERTAINING TO PATIENTS WHO ARE OR HAVE BEEN ENROLLED IN A CHEMICAL DEPENDENCY/SUBSTANCEABUSE PROGRAM, SOME INFORMATION MAY BE OMITTED. This clinical summary was aggregated from multiple sources. Caution should be exercised in using it in the provision of clinical care. This summary normalizes information from multiple sources, and as a consequence, information in this document may materially change the coding, format and clinical context of patient data. In addition, data may be omitted in some cases. CLINICAL DECISIONS SHOULD BE BASED ON THE PRIMARY CLINICAL RECORDS. [facility]. provides no warranty or guarantee of the accuracy or completeness of information in this document.
== END | disposition home or self-care (01) ==
LOC: BFHLAB 10:06
PROVIDERS: PCP Nurse Practitioner Family; Visit Provider Nurse Practitioner Family
DX: Z00.01 Encounter for general adult medical examination with abnormal findings (principal); R53.83 Other fatigue
CPT/HCPCS: 36415; 80053; 80061; 82306; 84403; 85025

== ENCOUNTER → 2024-11-05 | Outpatient (CLI) | payer OTHER, SELFPAY ==
[2024-11-05 16:02] LABS: Ferritin 139 ng/mL (37-417)
[2024-11-10 12:08] LABS: PROLACTIN 7.3 ng/mL (3.6-31.5); Testosterone, % Free 3.36 % (1.50-4.20); Testosterone, Free 7.76 ng/dL (5.00-21.00); Transferrin 248 mg/dL (177-329)
== END | disposition home or self-care (01) ==
LOC: BFHLAB 11:16
PROVIDERS: PCP Nurse Practitioner Family; Visit Provider Family Medicine
DX: E29.1 Testicular hypofunction (principal); D58.2 Other hemoglobinopathies
CPT/HCPCS: 36415; 82728; 84146; 84402; 84403; 84443; 84466